=== PATIENT | male | born 1945 | race African-American/Black ===

== ENCOUNTER → 2016-06-02 | Outpatient (CLI) | payer MEDICARE ==
--- NOTE | 2016-06-02 11:51 | KCIC ---
PROCEDURE Abdomen sonogram. HISTORY Microscopic hematuria. TECHNIQUE Sonographic imaging of the abdomen was performed. COMPARISON None. FINDINGS The liver is normal in size. There is hepatic steatosis. No focal hepatic lesion is seen. The common bile duct is normal in caliber. The gallbladder is unremarkable. The right kidney measures 9.4 cm pole to pole and the left kidney measures 9.4 cm pole to pole. There is a suspected 1.6 cm left renal cyst. There is no hydronephrosis. The pancreas and aorta are partially obscured due to bowel gas. The visualized portions of the aorta are normal in caliber. The spleen is normal in size. The bladder is unremarkable. The ureteral jets are both seen. IMPRESSION 1. 1.6 cm hypoechoic lesion within the left kidney, most suggestive of a cyst. In the absence of prior studies to confirm stability, follow-up can be performed to confirm benignity. There is no evidence of obstructive uropathy. 2. Hepatic steatosis. Electronically signed by: Tanisha Bowie (Jun 02, 2016 11:50:25)
== END | disposition home or self-care (01) ==
LOC: KCIC US 09:54
PROVIDERS: ATTEND Urology
DX: R31.29 Other microscopic hematuria (principal); K76.0 Fatty (change of) liver, not elsewhere classified
CPT/HCPCS: 76700